=== PATIENT | female | born 2000 | race Caucasian/White ===

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

== ENCOUNTER 2018-06-07 00:26 | Emergency (ER) | payer OTHER, MEDICAID ==
[~2018-06-07] VITALS: Ht 170.2 cm; Wt 104.3 kg
[~2018-06-07 00:26] MED LIST: AMIT25TA PO; BENZ100C PO; IBUP-1060 PO; LEVE500T56 PO; METR500T PO
[2018-06-07 01:23] VITALS: BP 143/68
[2018-06-07] MEDS ORDERED: AZIT250T6 PO (02:17)
[2018-06-07] MEDS ORDERED: D-ME118S2 PO (02:17)
--- NOTE | 2018-06-07 02:17 | PHYS DOC ---
Past Medical History Past Medical History: Migraines, Seizure, Other Additional Past Medical Histor: HEMIPLEGIC MIGRAINES Past Surgical History: Other Additional Past Surgical Histo: bladder surgery. Alcohol Use: None Drug Use: Marijuana Adult General Chief Complaint Chief Complaint: Congestion HPI HPI Patient is a 17 year old female who presents with cough, congestion, fever. This started yesterday. Some relief with Tylenol but fever returned within the Tylenol wore off. Patient has a brother who was recently diagnosed with pneumonia. No nausea or vomiting. Nonproductive cough. Some diffuse body aches. Symptoms are mild to moderate in intensity.[] Review of Systems Review of Systems Constitutional: Denies chills or generalized weakness[] Eyes: Denies change in visual acuity, redness, or eye pain [] HENT: Denies nasal congestion or sore throat [] Respiratory: See history of present illness[] Cardiovascular: No chest pain or palpitations[] GI: Denies abdominal pain, nausea, vomiting, bloody stools or diarrhea [] : Denies dysuria or hematuria [] Musculoskeletal: Denies back pain or joint pain [] Integument: Denies rash or skin lesions [] Neurologic: Denies headache, focal weakness or sensory changes [] Endocrine: Denies polyuria or polydipsia [] All other systems were reviewed and found to be within normal limits, except as documented in this note. Allergies Allergies Allergies Coded Allergies Type Severity Reaction Last Updated Verified No Known Drug Allergies 05/01/17 No Physical Exam Physical Exam Constitutional: Well developed, well nourished, no acute distress, non-toxic appearance. [] HENT: Normocephalic, atraumatic, bilateral external ears normal, oropharynx moist, no oral exudates, nose normal. [] Eyes: PERRLA, EOMI, conjunctiva normal, no discharge. [] Neck: Normal range of motion, no tenderness, supple, no stridor. [] Cardiovascular:Heart rate regular rhythm, no murmur [] Lungs & Thorax: Bilateral breath sounds clear to auscultation [] Abdomen: Bowel sounds normal, soft, no tenderness, no masses, no pulsatile masses. [] Skin: Warm, dry, no erythema, no rash. [] Back: No tenderness, no CVA tenderness. [] Extremities: No tenderness, no cyanosis, no clubbing, ROM intact, no edema. [] Neurologic: Alert and oriented X 3, normal motor function, normal sensory function, no focal deficits noted. [] Psychologic: Affect normal, judgement normal, mood normal. [] Current Patient Data Vital Signs Vital Signs Date Time Temp Pulse Resp B/P (MAP) Pulse Ox O2 Delivery O2 Flow Rate FiO2 06/07/18 01:23 102.6 108 18 143/68 (93) 98 Room Air 102.6 EKG EKG [] Radiology/Procedures Radiology/Procedures [] Course & Med Decision Making Course & Med Decision Making Pertinent Labs and Imaging studies reviewed. (See chart for details) Medical decision making: Given that the patient has family with recent diagnosis of pneumonia will cover her for community-acquired pneumonia. No evidence of hypoxia, nontoxic patient. Discussed the plan with the patient who voiced understanding. All questions were answered.[] Dragon Disclaimer Dragon Disclaimer This electronic medical record was generated, in whole or in part, using a voice recognition dictation system. Departure Departure Impression: Primary Impression: Cough Additional Impression: Fever Disposition: HOME, SELF-CARE Condition: GOOD Referrals: UNKNOWN PCP NAME (PCP) Patient Instructions: Cough, Adult, Fever, Adult Additional Instructions: Drink plenty of fluids. Take Tylenol as directed on the package, as needed for aches, pains, or fever. Follow-up with your regular doctor in 2 days. Return to the ER if worsening cough, difficulty breathing, or any other concerns. Scripts Azithromycin (AZITHROMYCIN TABLET) 250 Mg Tablet 250 MG PO DAILY for ANTI-BIOTIC for 5 Days, #6 TAB 0 Refills 500 mg on day one 250 mg on day 2 through 5 Prov: USMAN WAGGONER DO 06/07/18 D-Methorphan Hb/Prometh Hcl (PROMETHAZINE-DM SYRUP) 118 Ml Syrup 5 ML PO PRN Q4HRS, #120 ML Prov: USMAN WAGGONER DO 06/07/18 Problem Qualifiers Additional Impression: Fever Fever type: unspecified Qualified Codes: R50.9 - Fever, unspecified USMAN WAGGONER DO Jun 07, 2018 02:17
== END 2018-06-07 02:38 | disposition home or self-care (01) ==
LOC: ER 00:26
DX: R05 Cough (principal); R50.9 Fever, unspecified; R09.81 Nasal congestion; G43.409 Hemiplegic migraine, not intractable, without status migrainosus
CPT/HCPCS: 99283